=== PATIENT | female | born 1995 | race Two or more races ===

== ENCOUNTER 2024-09-18 07:53 | Emergency (ER) | payer MEDICAID, SELFPAY ==
[2024-09-18 07:54] VITALS: BMI 43.4
[2024-09-18 08:10] VITALS: BP 156/103; PULSE 91; RESP 20; TEMP 37.1; O2SAT 98; BMI 45.1
--- NOTE | 2024-09-18 08:13 | XR_ITS ---
Examination: CT brain head without contrast. 2-D sagittal coronal reconstructions Date and time of exam:September 18, 2024 0841 hrs. Indications: Generalized head pain onset today CTDI: vol (mGy):51.1 DLP: (mGycm):980 Technique: Multiple CT axial sections of the brain have been obtained, 5 mm slice thickness. Contrast has not been administered. 2-D sagittal, coronal reconstructions have been obtained Low dose protocols were performed. One or more of the following dose reduction techniques were used; automated exposure control, adjustment of the mA and/or KV according to patient size, use of iterative reconstruction technique. Findings: No significant ventricular enlargement. Intra-axial or extra-axial hemorrhage density is not seen. No mass effect or midline shift Basal cisterns are not remarkable. Fourth ventricle is midline. Cranial vault intact. Impression: Negative for acute hemorrhage, mass effect or midline shift
[2024-09-18] MEDS: ONDANSETRON ODT 4 MG TABRAP PO (08:22)
[2024-09-18] MEDS: HYDROcodone/APAP 5/325 TABLET 1 TAB PO (08:25)
[2024-09-18 08:57] LABS: Collection Type, Urine Clean Catch
[2024-09-18 09:00] LABS: Basophils # (Auto) 0.1 Thou/mm3 (0.0-0.2); Basophils % (Auto) 1 % (0-2.5); Eosinophils # (Auto) 0.2 Thou/mm3 (0.0-0.5); Eosinophils % (Auto) 2 % (0-10); Hematocrit 44.5 % (36.0-46.0); Hemoglobin 15.1 g/dL (12.0-16.0); Immature Granulocytes % (Auto) 0 % (0-0); Immature Granulocytes Auto 0.03 Thou/mm3 (0.00-0.00); Lymphocytes # (Auto) 2.7 Thou/mm3 (1.0-4.8); Lymphocytes % (Auto) 28 % (10-50); Mean Corpuscular HGB Conc 33.9 g/dl (31.0-37.0); Mean Corpuscular Hemoglobin 28.4 pg (25.0-35.0); Mean Corpuscular Volume 84 fL (80-100); Monocytes # (Auto) 0.6 Thou/mm3 (0.0-0.8); Monocytes % (Auto) 7 % (0-12); Neutrophils # (Auto) 6.1 Thou/mm3 (1.8-7.7); Neutrophils % (Auto) 63 % (37-80); Nucleated Red Blood Cell % 0 /100 WBC (0); Platelet Count 110 Thou/mm3 (140-440); RDW Standard Deviation 40.6 fL (36.4-46.3); Red Blood Count 5.32 Miln/mm3 (4.00-5.20); White Blood Count 9.7 Thou/mm3 (3.6-11.0)
[2024-09-18 09:18] LABS: Bacteria,Urine Rare; Bilirubin,Urine Negative (Negative); Blood,Urine 2+ (Negative); Clarity,Urine Clear (Clear/Hazy); Color,Urine Yellow (Lt Yel-Yel); Culture Indicated,Urine Not Indicated; Glucose, Urine Negative (Negative); Ketones,Urine Negative (Negative); Leukocyte Esterase,Urine Negative (Negative); Nitrite,Urine Negative (Negative); Protein,Urine Trace (Neg - Trace); RBC,Urine 4 /hpf (0-3); Specific Gravity,Urine 1.033 (1.001-1.035); Squamous Epithelial Cell,Urine 2 /hpf (0-5); WBC,Urine 2 /hpf (0-5)
[2024-09-18 09:18] LABS: Alanine Aminotransferase 13 U/L (10-49); Albumin, Serum 4.5 gm/dL (3.5-5.0); Albumin/Globulin Ratio 1.3 (1.2-2.2); Alkaline Phosphatase 75 U/L (46-116); Anion Gap 10 (7-16); Aspartate Amino Transferase 13 U/L (0-34); BUN/Creatinine Ratio 13 Ratio (12-20); Bilirubin,Total 0.5 mg/dL (0.3-1.2); Blood Urea Nitrogen 13 mg/dL (9-23); Calcium 9.8 mg/dL (8.3-10.6); Calcium (Corrected) 9.8 mg/dL (8.5-10.1); Carbon Dioxide 24.3 mMol/L (20.0-31.0); Chloride 108 mMol/L (98-107); Estimated Creatinine Clearance 93.5 mL/min (>60); Globulin 3.4 gm/dL (2.3-3.5); Glucose 113 mg/dL (74-106); Lipase 45 U/L (12-53); Osmolality,Calculated 284 (275-295); Potassium 3.7 mMol/L (3.4-5.1); Sodium 142 mMol/L (136-145); Total Protein 7.9 gm/dL (5.7-8.2); eGFR > 60 See Note
[2024-09-18 09:39] LABS: HCG Qualitative,Urine Negative
--- NOTE | 2024-09-18 11:31 | EDNOTE_ITS ---
<Statement entered by Kaylee Chinchilla MD - 09/19/24 08:12> As co-signing physician, I was present and available for consult prn. I concur with the plan and care as documented by the midlevel provider. Upper Respiratory Inf. RME/HPI General Chief Complaint: Flu Like Symptoms Stated Complaint: HEADACHE, NAUSEA AND SWEATING X20MIN Time Seen by Provider: 09/18/24 08:02 Arrival date/time: 09/18/24 07:53 28-year-old female presents emergency department complains of headache and nausea patient reports she is becoming intimate with her partner and developed a headache. Patient reports that symptoms have happened in the past. Patient ports no chest pain or shortness of Limitations: no limitations Related Data Previous Rx's ?Medication ?Instructions ?Recorded acetaminophen-caffeine 500 mg-65 1 tab PO Q6H PRN pain #30 tabs 09/18/24 mg tablet (Excedrin Tension Headache) ibuprofen 800 mg tablet 800 mg PO TID PRN pain #30 t abs 09/18/24 Allergies Allergy/AdvReac Type Severity Reaction Status Date / Time No Known Allergies Allergy Verified 09/18/24 07:56 Review of Systems Review of Systems Systems Reviewed: All systems reviewed, normal except as documented Constitutional Constitutional: Reports system reviewed and no additional complaints, except as documented, Denies fever(s), Reports headache(s) and Denies weakness Eyes Eyes: Reports system reviewed and no additional complaints, except as documented and Denies blurry vision ENT Ears, Nose, Mouth, and Throat: Reports system reviewed and no additional compl aints, except as documented, Reports headache(s), Denies nasal congestion, Denies nasal discharge and Denies vertigo Cardiovascular Cardiovascular: Reports system reviewed and no additional complaints, except as documented, Denies chest pain, Denies dyspnea and Denies syncope Respiratory Respiratory: Reports system reviewed and no additional complaints, except as documented, Denies chest congestion, Denies cough and Denies dyspnea Gastrointestinal Gastrointestinal: Reports system reviewed and no additional complaints, except as documented and Denies abdominal pain Musculoskeletal Musculoskeletal: Denies tingling Integumentary/Breasts Skin/Breast: Reports system reviewed and no additional complaints, except as documented and Denies rash Neurologic Neurologic: Reports system reviewed and no additional complaints, except as documented, Reports as per HPI, Reports headache(s), Denies syncope, Denies tingling, Denies tremor(s), Denies vertigo and Denies weakness Psychiatric Psychiatric: Reports system reviewed and no additional complaints, except as documented Past Medical History Social History SMOKING STATUS: Current some day smoker ED Exam General Limitations: Present no limitations General appearance: Present alert and in no apparent distress Head Head exam: Present atraumatic, normocephalic and normal inspection Eye Eye exam: Present normal appearance, PERRL and EOMI; Absent conjunctival injection ENT ENT exam: Present normal exam, normal oropharynx and mucous membranes moist Neck Neck exam: Present normal inspection, full ROM and trachea midline Chest Chest inspection: Present normal inspection and symmetric chest wall rise Respiratory Respiratory exam: Present normal lung sounds bilaterally Cardiovascular Cardiovascular exam: Present regular rate, normal rhythm and normal heart sounds Abdominal Exam Abdominal exam: Present soft and normal bowel sounds Extremities Exam Extremities exam: Present normal inspection and full ROM Back Exam Back exam: Present normal inspection and full ROM Neurological Exam Neurological exam: Present alert, oriented X3, CN II-XII intact, normal gait and reflexes normal; Absent motor sensory deficit Psychiatric Psychiatric exam: Present normal affect and normal mood Skin Skin exam: Present warm, dry, intact and normal color Course Quality Measures none Orders Category Date Time Status Bedside Influenza A&B Antigen Test NOW Care 09/18/24 08:[address] head/brain wo con Stat Exams 09/18/24 08:13 Completed CBC Stat Lab 09/18/24 08:35 Completed Comprehensive Metabolic Panel Stat Lab 09/18/24 08:35 Completed HCG Qualitative,Urine Stat Lab 09/18/24 08:30 Completed Lipase Stat Lab 09/18/24 08:35 Completed UA, C/S IF [Urinalysis, C/S if Indicated] Stat Lab 09/18/24 08:30 Completed HYDROcodone*/APAP 5/325 [[place] 5/325] Med 09/18/24 08:13 Discontinued 1 tab PO X1 ONE Ondansetron Odt [Zofran Odt] Med 09/18/24 08:12 Discontinued 4 mg PO X1 ONE Vital Signs Vital signs: Vital Signs Temperature 98.7 F 09/18/24 08:10 Pulse Rate 91 09/18/24 08:10 Respiratory Rate 20 09/18/24 08:10 Blood Pressure 156/103 H 09/18/24 08:10 Pulse Oximetry (%) 98 09/18/24 08:10 Oxygen Delivery Method Room Air 09/18/24 08:10 O2 saturation 98% room air within normal limits Upper Respiratory Infection MDM Narrative MDM Narrative:: 28-year-old female presents emergency department complains of headache and nausea patient reports she is becoming intimate with her partner and developed a headache. Patient reports that symptoms have happened in the past. Patient ports no chest pain or shortness of On exam patient with appearing patient does not appear ill or toxic does not appear to be in acute distress Patient discharged home in no distress to follow-up with primary care doctor in the next 24 to 48 hours and for any worsening symptoms to return to the ER immediately Patient data External records reviewed:: [facility] previous records Clinical information provided by:: patient Social determinants that could affect healthcare access:: none Patient has the following chronic illnesses:: None How is presenting disease/condition affected by chronic disease/condition?: no chronic disease Evaluation data The following diagnostics were reviewed and interpreted by me:: lab results and radiology exam(s) Lab and/or radiology exams considered but not ordered:: Pain labs radiology obtain Interpretation Summary: Reviewed by me Medications / Prescriptions Medications or Prescriptions considered but not ordered:: Given Medication administrations:: Medication Administration History Discontinued Medications Hydrocodone Bitart/Acetaminophen (Hydrocodone/Apap 5/325 Tablet) 1 tab PO X1 ONE Stop: 09/18/24 08:14 Last Admin: 09/18/24 08:25 Dose: 1 tab Documented By: YANG Ondansetron HCl (Ondansetron Odt 4 Mg Tabrap) 4 mg PO X1 ONE; Protocol Stop: 09/18/24 08:13 Last Admin: 09/18/24 08:22 Dose: 4 mg Documented By: YANG Given Consultations Consultation(s) initiated? (list below): No Diagnosis Upper Respiratory Differential Diagnosis: upper respiratory infection, sinusitis, viral infection and other (Headache) Most likely diagnosis given after review of the tests above:: Headache Admission Indicated Admission indicated?: not indicated Admission Request Was there a request for admission?: No Disposition Plan Disposition Plan: Discharge Discharge Attestation Discharge Attestation: The patient and all family members were given an opportunity to ask questions and understood the discharge instructions. Discharge instructions specifically effects, indications for sooner follow up or return to the emergency department, and the expected course of current diagnosis. Patient condition: Stable Discharge Plan Plan Patient Disposition: HOME (Self Care) Disposition Comment: Stable Prescriptions/Referrals Prescriptions/Med Rec: New Excedrin Tension Headache 500-65 mg tablet 1 tab PO Q6H PRN (Reason: pain) Qty: 30 0RF ibuprofen 800 mg tablet 800 mg PO TID PRN (Reason: pain) Qty: 30 0RF Referrals: No Primary/Family,Physician [Primary Care Provider] - In 1 week Problem List Clinical Impression: Headache Patient/Caregiver Discharge Instructions Education Materials: Self-Care for Headaches Additional Instructions: Please follow up with your primary care doctor in the next 24-48hrs for any worsening symptoms return here immediately Print Language: Syriac Stand Alone Forms: Diana Award Info., Work/School Release, Patient Portal Info Letter PA/C[employer]TER [employer] Supervising Physician PA/C[employer]TER [employer] SHE[employer] Supervising Physician: Dr. CHINCHILLA
== END 2024-09-18 11:48 | disposition home or self-care (01) ==
PROVIDERS: Nurse Practitioner Primary Care; Emergency Provider Emergency Medicine
DX: R51.9 Headache, unspecified (principal); F17.210 Nicotine dependence, cigarettes, uncomplicated
CPT/HCPCS: 36415; 70450; 80053; 81001; 81025; 83690; 85025; 99284; Q0162; A9270

== ENCOUNTER 2024-10-30 08:52 | Outpatient (AMB) | payer MEDICAID, SELFPAY ==
[2024-10-30 09:05] VITALS: BP 127/89; PULSE 79; RESP 16; TEMP 36.3; O2SAT 97; BMI 46.8
--- NOTE | 2024-10-30 09:05 | GYNCLNT_ITS ---
Vital Signs 10/30/24 09:05 Height 1.55 m Height Method Stated Weight 112.491 kg Weight Measurement Method Standing Scale BMI 46.8 BP 127/89 H Blood Pressure Source Automatic Cuff Blood Pressure Location Left Upper Arm Position Sitting Respiration 16 Pulse 79 Pulse Source Monitor Temp 97.4 F Temp Source Oral Pulse Oximetry (%) 97 Oxygen Delivery Method Room Air Allergies/Home Meds Allergies & Medications Allergies No Known Allergies Allergy (Verified 10/30/24 09:07) Intake Visit Data Collection New Patient or Established: Established Patient (seen at 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 1. Little interest or pleasure in doing things: several days 2. Feeling down, depressed, or hopeless: more than half the days Total score: 3 PHQ-9 3. Trouble falling or staying asleep, or sleeping too much: Not at all 4. Feeling tired or having little energy: Not at all 5. Poor appetite or overeating: Not at all 6. Feeling bad about yourself - or that you are a failure or have let yourself or your family down: Not at all 7. Trouble concentrating on things, such as reading the newspaper or watching television: Not at all 8. Moving or speaking so slowly that other people could have noticed? - Or the opposite - being so fidgety or restless that you have been moving around a lot more than usual: not at all 9. Thoughts that you would be better off or of hurting yourself in some way: Not at all Total score: 3 If you checked off any problems, how difficult have these problems made it for you to do your work, take care of things at home, or get along with other people?: somewhat difficult Source: Developed by Drs. Jovan Madrid, Silva Moreira, Azeem Hunter and colleagues, with an educational claire from [employer]. Depression screen completed yes Social History Living Situation History Lives With: Family Housing: House Tobacco History Smoking Status: Never smoker Second Hand Smoke Exposure: Yes Alcohol History Alcohol Intake: Current Alcohol Intake Frequency: holidays/special occasions only Domestic Abuse History Do You Feel Safe at Home: Yes History of Present Illness HPI Narrative 28-year-old nullipara for ANIMAL HERDER exam and Nexplanon concerns. Patient started menses at 11 years old. Patient reports regular menses until March when Nexplanon was placed. Since Nexplanon placement menses has been spotty and irregular. Patient wishes to continue with the Nexplanon to see if the bleeding will stop. Patient has a history of elevated BMI. Weight gain of 30 pounds since March with Nexplanon. History of hypertension. Patient is not taking any medication. Patient is [facility] at [facility] for chronic health issues. Patient reports feeling depression and low energy. She recently has been and moved to [place]. History of a new partner. She uses THC on a daily basis. Denies alcohol or tobacco use. And a history of an appendectomy. Denies any ANIMAL HERDER complaints at this time Review of Systems Review of Systems Systems Reviewed: All systems reviewed, normal except as documented Exam Narrative Physical exam: facial hair on chin, euthyroid, abdomen soft, non tender,no mass. perineum intact, no lesion, vagina pink, no discharge, nullip cervix,no lesion,no cmt, no adnexal mass. both breast soft, non tender, symmetrical, no masses, no skinchanges, no nipple discharge General Limitations: no limitations General Appearance: alert, in no apparent distress, comfortable, cooperative, healthy appearing, well developed and well groomed Head Head exam: atraumatic, normocephalic and normal inspection Chest Chest inspection: Present normal inspection and symmetric chest wall rise Resp Respiratory exam: Present normal lung sounds bilaterally Card Cardiovascular exam: Present regular rate, normal rhythm and normal heart sounds Abdominal Abdominal exam: Present soft and normal bowel sounds Speculum exam: Present normal speculum exam Bimanual exam: Present normal bimanual exam Psych Psychiatric exam: Present normal affect and normal mood Office Procedures OB Clinic LOC & Office Proc's Nursing/Assessment Patient Status: Established Patient OB Clinic Nursing Assessment: Medication Reconciliation, Update PMH in EMR and Vital Signs OB Clinic Coordination of Care: Complex Care and Chronic Disease 1-5, Consent,records obtained, informed consent, Education Simp Pt/Fam, Lab and Imaging orders, Results/Orders obtained and Staff clarify orders Miscellaneous Interventions: Pelvic/Pap Smear Set up Established Patient Charge Established Patient Point Assignment: 125 Established Patient Point Charge: EP Level 4 (120-155) In Clinic Procedures Pap Smear: Yes Papsmear Ambulatory Location Ambulatory Dept Location: OB Clinic Patient Information Last Menstral Period (LMP): 03/12/22 : 0 Para: 0 Spontaneous (s): 0 Theraputic (s): 0 Are you currently experiencing any urinary symptoms?: Other (irreg vag bleeding with nexplanon) Pap Smear Procedure Chaparone in room during procedure?: No Pre-op diagnosis general: annual screen Post-op diagnosis procedure note: Same Procedure Notes:: tolerated procedure, spec placed, tolerated well. specimen collected Assessment & Plan Diagnosis / Problem List (1) Cervical smear, as part of routine gynecological examination: Status: Acute (2) Encounter for Papanicolaou smear for cervical cancer screening: Status: Acute (3) High-risk human papillomavirus (HPV) DNA not detected in vaginal specimen: Status: Acute (4) Encounter for monitoring of etonogestrel implant: Status: Acute Plan pap today. review nexplanon, side effect, compliance and effectiveness. discuss diet and weight loss. multi vitamin with folic acid, walk 40 minute daily. advised patient to schedule appointment with PCP for f/u on HTN and depression. rtc as needed for results if needed Additional Plan Follow Up: 1 Year (f/u on nexplanon)
== END 2024-10-30 09:23 | disposition home or self-care (01) ==
LOC: HODSOBC 08:52
PROVIDERS: Supervising Provider Obstetrics & Gynecology; Visit Provider Advanced Practice Midwife
DX: Z01.419 Encounter for gynecological examination (general) (routine) without abnormal findings (principal); Z11.51 Encounter for screening for human papillomavirus (HPV); Z30.46 Encounter for surveillance of implantable subdermal contraceptive; I10 Essential (primary) hypertension; F32.A Depression, unspecified; Z90.49 Acquired absence of other specified parts of digestive tract
CPT/HCPCS: 99214; Q0091; G0463

== ENCOUNTER 2025-03-30 23:47 | Emergency (ER) | payer OTHER, MEDICAID, SELFPAY ==
[2025-03-30 23:48] VITALS: BMI 47.2
[2025-03-30 23:54] VITALS: BP 153/69; PULSE 111; RESP 19; TEMP 37.9; O2SAT 97
[2025-03-31 00:34] LABS: Basophils # (Auto) 0.1 Thou/mm3 (0.0-0.2); Basophils % (Auto) 1 % (0-2.5); Eosinophils # (Auto) 0.2 Thou/mm3 (0.0-0.5); Eosinophils % (Auto) 2 % (0-10); Hematocrit 45.0 % (36.0-46.0); Hemoglobin 14.9 g/dL (12.0-16.0); Immature Granulocytes Auto 0.02 Thou/mm3 (0.00-0.00); Lymphocytes # (Auto) 2.9 Thou/mm3 (1.0-4.8); Lymphocytes % (Auto) 24 % (10-50); Mean Corpuscular HGB Conc 33.1 g/dl (31.0-37.0); Mean Corpuscular Hemoglobin 28.5 pg (25.0-35.0); Mean Corpuscular Volume 86 fL (80-100); Monocytes # (Auto) 0.8 Thou/mm3 (0.0-0.8); Monocytes % (Auto) 7 % (0-12); Neutrophils # (Auto) 8.0 Thou/mm3 (1.8-7.7); Neutrophils % (Auto) 67 % (37-80); Nucleated Red Blood Cell # 0.00 Thou/mm3 (0.00-0.00); Nucleated Red Blood Cell % 0 /100 WBC (0); Platelet Count 116 Thou/mm3 (140-440); RDW Standard Deviation 42.2 fL (36.4-46.3); Red Blood Count 5.22 Miln/mm3 (4.00-5.20); White Blood Count 12.0 Thou/mm3 (3.6-11.0)
[2025-03-31 00:48] LABS: Collection Type, Urine Clean Catch
[2025-03-31 00:52] LABS: Alanine Aminotransferase 22 U/L (10-49); Albumin, Serum 4.8 gm/dL (3.5-5.0); Albumin/Globulin Ratio 1.8 (1.2-2.2); Alkaline Phosphatase 75 U/L (46-116); Anion Gap 11 (7-16); Aspartate Amino Transferase 20 U/L (0-34); BUN/Creatinine Ratio 8 Ratio (12-20); Bilirubin,Total 0.4 mg/dL (0.3-1.2); Blood Urea Nitrogen 8 mg/dL (9-23); Calcium 9.9 mg/dL (8.3-10.6); Calcium (Corrected) 9.9 mg/dL (8.5-10.1); Carbon Dioxide 24.9 mMol/L (20.0-31.0); Chloride 106 mMol/L (98-107); Creatinine (Component) 1.0 mg/dL (0.6-1.3); Estimated Creatinine Clearance 95.3 mL/min (>60); Globulin 2.7 gm/dL (2.3-3.5); Glucose 106 mg/dL (74-106); Osmolality,Calculated 281 (275-295); Potassium 4.0 mMol/L (3.4-5.1); Sodium 142 mMol/L (136-145); Total Protein 7.5 gm/dL (5.7-8.2); Troponin I < 0.002 ng/mL (0.0-0.045); eGFR > 60 See Note
[2025-03-31 00:53] LABS: Bilirubin,Urine Negative (Negative); Blood,Urine Negative (Negative); Clarity,Urine Clear (Clear/Hazy); Color,Urine Yellow (Lt Yel-Yel); Glucose, Urine Negative (Negative); Ketones,Urine Negative (Negative); Leukocyte Esterase,Urine Negative (Negative); Nitrite,Urine Negative (Negative); PH,Urine 6.5 (5.0-7.0); Protein,Urine Negative (Neg - Trace); RBC,Urine 4 /hpf (0-3); Specific Gravity,Urine 1.026 (1.001-1.035); Squamous Epithelial Cell,Urine < 1 /hpf (0-5); Urobilinogen,Urine Negative mg/dL (0.0-1.0); WBC,Urine < 1 /hpf (0-5)
[2025-03-31 01:00] LABS: HCG Qualitative,Urine Negative
--- NOTE | 2025-03-31 02:19 | PD.EDCHEST ---
ED Chest Pain RME/HPI General Chief Complaint: Anxiety Stated Complaint: ANXIETY Time Seen by Provider: 03/30/25 23:58 Arrival date/time: 03/30/25 23:47 This is a case of 29-year-old female with history of anxiety came into the emergency room due to chest pain on and off since last night associated with mild shortness of breath but no palpitation no other symptoms noted patient attributes the chest pain to her anxiety patient stated that she is stressed today patient denies any depression denies any suicidal homicidal or hallucination denies Limitations: no limitations Related Data Previous Rx's ?Medication ?Instructions ?Recorded hydroxyzine HCl 25 mg tablet 25 mg PO BID PRN anxiety #10 tabs 03/31/25 Allergies Allergy/AdvReac Type Severity Reaction Status Date / Time No Known Allergies Allergy Verified 03/30/25 23:50 Review of Systems Review of Systems Systems Reviewed: All systems reviewed, normal except as documented Constitutional Constitutional: Reports system reviewed and no additional complaints, except as documented and Reports as per HPI Cardiovascular Cardiovascular: Reports system reviewed and no additional complaints, except as documented and Reports as per HPI Respiratory Respiratory: Reports system reviewed and no additional complaints, except as documented and Reports as per HPI Gastrointestinal Gastrointestinal: Reports system reviewed and no additional complaints, except as documented and Reports as per HPI Musculoskeletal Musculoskeletal: Reports system reviewed and no additional complaints, except as documented and Reports as per HPI Neurologic Neurologic: Reports system reviewed and no additional complaints, except as documented Past Medical History Social History SMOKING STATUS: Never smoker SECOND HAND EXPOSURE: Yes ED Exam General Limitations: Present no limitations General appearance: Present alert, in no apparent distress and other Head Head exam: Present atraumatic, normocephalic and normal inspection Eye Eye exam: Present normal appearance, PERRL and EOMI ENT ENT exam: Present normal exam, normal oropharynx, mucous membranes moist and other Neck Neck exam: Present normal inspection, full ROM and trachea midline Chest Chest inspection: Present normal inspection and symmetric chest wall rise; Absent tenderness Respiratory Respiratory exam: Present normal lung sounds bilaterally and other; Absent respiratory distress, wheezes, stridor, accessory muscle use or prolonged expiratory phase Cardiovascular Cardiovascular exam: Present regular rate, normal rhythm and normal heart sounds; Absent bradycardia, tachycardia, irregular rhythm, systolic murmur or diastolic murmur Abdominal Exam Abdominal exam: Present soft and normal bowel sounds; Absent distention, tenderness, guarding, rebound, rigidity, diminished bowel sounds or hyperactive bowel sounds Extremities Exam Extremities exam: Present normal inspection and full ROM Back Exam Back exam: Present normal inspection and full ROM Neurological Exam Neurological exam: Present alert, oriented X3, CN II-XII intact, normal gait and reflexes normal; Absent motor sensory deficit Psychiatric Psychiatric exam: Present normal affect, normal mood, anxious and other (No hallucination); Absent depressed, agitated, flat affect, manic, homicidal ideation or suicidal ideation Skin Skin exam: Present warm, dry, intact, normal color and other (Excellent skin turgor) Course Quality Measures none Orders Category Date Time Status EKG (ED ONLY) *Do not use* NOW Care 03/30/25 23:59 Completed EKG (ED Only) Stat Exams 03/30/25 23:58 Ordered XR chest 1V Stat Exams 03/31/25 00:01 Ordered CBC Stat Lab 03/30/25 23:58 Completed Comprehensive Metabolic Panel Stat Lab 03/30/25 23:58 Completed HCG Qualitative,Urine Stat Lab 03/31/25 00:30 Completed Troponin I Stat Lab 03/30/25 23:58 Completed Urinalysis Stat Lab 03/31/25 00:30 Completed LORazepam [Ativan] Med 03/30/25 23:58 Discontinued 1 mg PO X1 ONE Vital Signs Vital signs: Vital Signs Temperature 100.2 F 03/30/25 23:54 Pulse Rate 111 H 03/30/25 23:54 Respiratory Rate 19 03/30/25 23:54 Blood Pressure 153/69 H 03/30/25 23:54 Pulse Oximetry (%) 97 03/30/25 23:54 Oxygen Delivery Method Room Air 03/30/25 23:54 Oxygen saturation is 97% in room air recheck temperature and noted to be 99.5 heart rate noted to be 100 Chest Pain MDM Narrative MDM Narrative:: This is a case of 29-year-old female with history of anxiety came into the emergency room due to chest pain on and off since last night associated with mild shortness of breath but no palpitation no other symptoms noted patient attributes the chest pain to her anxiety patient stated that she is stressed today patient denies any depression denies any suicidal homicidal or hallucination denies physical examination patient is awake alert oriented not in distress nontoxic looking well-hydrated well-nourished lungs sound is clear no crackles no rales no retraction no stridor HEENT exam is normal and unremarkable patient heart normal rate regular rhythm no murmur vital signs stable BP stable not tachycardic not tachypneic afebrile and nonhypoxic patient is mild anxiety but no depression no hallucination no suicidal no homicidal ideation blood test showed mild leukocytosis 12,000 no anemia kidney and liver function is normal no electrolyte imbalance troponin and BNP is normal EKG sinus rhythm patient refused x-ray based on my physical examination and history patient chest pain is not cardiopulmonary pathology patient chest pain is due to anxiety patient will follow-up with PCP in 2 days for reevaluation patient needs to see a waiter/waitress first class for further evaluation and treatment of chest pain for possible echocardiogram stress test and Holter monitor and need to see psychiatry psychologist for anxiety return precaution in the ER for worsening symptoms or any emergent concern Patient was discharged with comfortable condition walking with stable gait. Patient verbalized no further complains explained diagnosis and answered patient question. Patient is comfortable with the proposed management plan including the need to follow up with his/her primary care physician and any specialist if applicable Discussed patient for any urgent condition or worsening sx, He/She needed to go to emergency room immediately or call 911. Patient acknowledge the responsibility to follow up as instructed and to monitor her/his symptoms. For any persistence of the symptoms for more than 3-5 days return precaution advised. Discussed the result of the test and was given printed discharge instruction Patient data External records reviewed:: [facility] previous records Clinical information provided by:: patient Social determinants that could affect healthcare access:: none Patient has the following chronic illnesses:: None How is presenting disease/condition affected by chronic disease/condition?: no chronic disease Evaluation data The following diagnostics were reviewed and interpreted by me:: lab results, radiology exam(s) and EKG tracing(s) Lab and/or radiology exams considered but not ordered:: Reviewed Interpretation Summary: Reviewed Medications / Prescriptions Medications or Prescriptions considered but not ordered:: Given Medication administrations:: Medication Administration History Discontinued Medications Lorazepam (Lorazepam 0.5 Mg Tablet) 1 mg PO X1 ONE Stop: 03/30/25 23:59 Last Admin: 03/31/25 00:03 Dose: 1 mg Documented By: OA Given Consultations Consultation(s) initiated? (list below): No Diagnosis Chest Pain Differential Diagnosis: atypical chest pain, costochondritis and other (Anxiety) Most likely diagnosis given after review of the tests above:: Chest pain anxiety Admission Indicated Admission indicated?: not indicated Explain why admission is indicated or not indicated:: Not indicated Admission Request Was there a request for admission?: No Admission Attestation Admission request attestation: Not indicated Disposition Plan Disposition Plan: Discharge Discharge Attestation Discharge Attestation: The patient and all family members were given an opportunity to ask questions and understood the discharge instructions. Discharge instructions specifically effects, indications for sooner follow up or return to the emergency department, and the expected course of current diagnosis. Patient condition: Stable Discharge Plan Plan Patient Disposition: HOME (Self Care) Patient condition on transfer: Stable Prescriptions/Referrals Prescriptions/Med Rec: New hydroxyzine HCl 25 mg tablet 25 mg PO BID PRN (Reason: anxiety) Qty: 10 0RF Referrals: Sol Jin NP [Primary Care Provider] - In 1 week Problem List Clinical Impression: Chest pain of unknown etiology, Anxiety Patient/Caregiver Discharge Instructions Education Materials: Anxiety Disorders Tx Therapy, Treating Anxiety Disorders ..., ED Chest Pain, Uncertain Cause Additional Instructions: Follow-up with your primary care physician in 2 days for reevaluation and to be referred to waiter/waitress first class for further evaluation and treatment of chest pain for possible echocardiogram stress test and Holter monitor he also need to be referred to psychiatry psychologist for anxiety recurrence persistent worsening symptoms or any emergent concern call 911 or go to the nearest emergency room take your medication as directed keep hydrated Print Language: Kinyarwanda Stand Alone Forms: Diana Award Info., Patient Portal Info Letter FELICIA/MADELINE Supervising Physician FELICIA/MADELINE Supervising Physician: Dr. Jaffe
[2025-03-31 02:48] VITALS: BP 143/91; PULSE 86; RESP 18; TEMP 36.7; O2SAT 97
== END 2025-03-31 02:48 | disposition home or self-care (01) ==
PROVIDERS: Nurse Practitioner Family; Emergency Provider Emergency Medicine; PCP Nurse Practitioner Family
DX: R07.9 Chest pain, unspecified (principal); F41.9 Anxiety disorder, unspecified
CPT/HCPCS: 36415; 80053; 81001; 81025; 84484; 85025; 93005; 99283; A9270

== ENCOUNTER 2025-04-14 13:42 | Outpatient (AMB) | payer OTHER, MEDICAID, SELFPAY ==
[2025-04-14 13:56] VITALS: BP 132/85; PULSE 99; RESP 18; TEMP 36.4; O2SAT 98; BMI 46.5
--- NOTE | 2025-04-14 13:56 | AMB.GYNCLNOT ---
Vital Signs 04/14/25 13:56 Height 1.55 m Height Method Stated Weight 111.697 kg Weight Measurement Method Standing Scale BMI 46.5 BP 132/85 H Blood Pressure Source Automatic Cuff Blood Pressure Location Left Upper Arm Position Sitting Respiration 18 Pulse 99 Pulse Source Monitor Temp 97.6 F Temp Source Oral Pulse Oximetry (%) 98 Oxygen Delivery Method Room Air Allergies/Home Meds Allergies & Medications Allergies No Known Allergies Allergy (Verified 04/14/25 14:10) Medication Reconciliation hydroxyzine HCl 25 mg tablet 25 mg PO BID PRN anxiety #10 tabs 03/31/25 [Rx Confirmed 04/14/25] Intake Visit Data Collection New Patient or Established: Established Patient (seen at [facility] within 3 years) Reason for Visit:: NEXPLANNON REMOVAL Seen by Clinical Staff ONLY (RN/MA): No Store Merchandiser Required: No Do You Feel Safe at Home: Yes Authorities Contacted: N/A PCP or OBGYN visit in last 3 months: Yes Hx Now: No Are you currently on any form of Control: No Pain Present Currently: No Pain Scale Used: Hinojosa-Blackwood/Numerical Pain scale:: 0 Smoking Status Smoking Status: Never smoker Immunizations Flu Vaccine in the Last 12 Months: Yes Flu Vaccine Exclusion Criteria: Already Received Microarray Specialist history Microarray Specialist History Menstrual regularity: irregular Flow: heavy Monthly: No How many days does period last: 7 Age at menarche: 11 Currently sexually active: Yes Questionnaires Covid-19 Vaccine Questionnaire Has patient been vacinated for Covid-19 Have you been vacinated for Covid-19: Yes PHQ-9 PHQ-2 Over the last 2 weeks, how often have you been bothered by any of the following problems? 1. Little interest or pleasure in doing things: not at all 2. Feeling down, depressed, or hopeless: not at all Total score: 0 PHQ-9 3. Trouble falling or staying asleep, or sleeping too much: Not at all 4. Feeling tired or having little energy: Not at all 5. Poor appetite or overeating: Not at all 6. Feeling bad about yourself - or that you are a failure or have let yourself or your family down: Not at all 7. Trouble concentrating on things, such as reading the newspaper or watching television: Not at all 8. Moving or speaking so slowly that other people could have noticed? - Or the opposite - being so fidgety or restless that you have been moving around a lot more than usual: not at all 9. Thoughts that you would be better off or of hurting yourself in some way: Not at all Total score: 0 Source: Developed by Drs. Jovan Madrid, Silva Moreira, Azeem Hunter and colleagues, with an educational claire from [employer]. Depression screen completed yes Social History Living Situation History Lives With: Family Housing: House Tobacco History Smoking Status: Never smoker Second Hand Smoke Exposure: Yes Alcohol History Alcohol Intake: Current Alcohol Intake Frequency: holidays/special occasions only Domestic Abuse History Do You Feel Safe at Home: Yes History of Present Illness HPI Narrative 29year old 0 para 0 for Nexplanon removal. Patient had Nexplanon in for a year and a half and she would like for it to be removed. She is not happy with the. She has increased weight gain irregular menses. Patient plans to use condoms. She had an appendix out at 10 years old. She denies social habits. She denies any chronic illnesses except for morbid obesity. Patient denies any existing HEAD OF ART complaints. Review of Systems Review of Systems Systems Reviewed: All systems reviewed, normal except as documented Exam General Limitations: no limitations General Appearance: alert, in no apparent distress, comfortable, cooperative, healthy appearing, well developed and well groomed Head Head exam: atraumatic, normocephalic and normal inspection ENT ENT exam: Present normal exam, normal oropharynx and mucous membranes moist Neck Neck exam: Present normal inspection, full ROM and trachea midline Chest Chest inspection: Present normal inspection and symmetric chest wall rise Resp Respiratory exam: Present normal lung sounds bilaterally Card Cardiovascular exam: Present regular rate, normal rhythm and normal heart sounds Abdominal Abdominal exam: Present soft and normal bowel sounds Office Procedures [facility] LOC & Office Proc's Nursing/Assessment Patient Status: Established Patient [facility] Clinic Nursing Assessment: Medication Reconciliation, Update PMH in EMR and Vital Signs OB Clinic Coordination of Care: Complex Care and Chronic Disease 1-5, Consent,records obtained, informed consent, Education Simp Pt/Fam, Lab and Imaging orders, Results/Orders obtained and Staff clarify orders Established Patient Charge Established Patient Point Assignment: 105 Injection/Vaccine Admin SQ Im Injection: Yes In Clinic Procedures Removal of Control Implant other NOT IUD: Yes Minor Surgical Procedure: Yes Assessment & Plan Diagnosis / Problem List (1) Nexplanon removal: Status: Acute Plan Consent for Nexplanon removal done. Discussed Nexplanon removal procedure with patient. Discussed wound care with patient. Keep dry for 3 days. Condoms for 2 weeks and as needed. Discussed side effects and danger signs symptoms. Return as needed for follow-up. I offered another contraception. Patient plans to use condoms. We reviewed compliance and effectiveness of condoms Additional Plan Follow Up: 6 Weeks (f/u nexplanon) Control Implant/Removal Diaphragm Fitting Diaphragm fitting: No Removal of Contraceptive Device Ambulatory Dept Location: OB Clinic Removal of Contraceptive Device: Yes (nexplanon x 1 1/2 yr for removal and change to condom) Removal of IUD Ambulatory Dept Location: OB Clinic Removal of IUD: No (Nexplanon Removal ) Procedure Notes Pre-op diagnosis general: Nexplanon removal Post-op diagnosis procedure note: Same Consent obtained: yes-verbal and yes-written Consent comments: Patient was consented both verbally and gave written consent. Nexplanon removal procedure was discussed with patient. And side effects and complications discussed. Procedure Notes:: Procedure was done per protocol. Negative test. Nexplanon site was cleansed with Betadine x 3. 2 cc of lidocaine at Nexplanon capsule insert site was done. 1/8 cm incision made. Nexplanon capsule was removed with a needle adams intact capsule. Small amount of bleeding noted. Bleeding stopped with pressure. Band-Aid placed and then pressure dressing applied. Patient left in stable condition walking
== END 2025-04-14 14:33 | disposition home or self-care (01) ==
LOC: HODSOBC 13:42
PROVIDERS: Supervising Provider Advanced Practice Midwife; Visit Provider Advanced Practice Midwife
DX: Z30.46 Encounter for surveillance of implantable subdermal contraceptive (principal); E66.01 Morbid (severe) obesity due to excess calories; Z68.42 Body mass index [BMI] 45.0-49.9, adult
CPT/HCPCS: 11982; 96372; J3490